=== PATIENT | male | born 1995 | race Caucasian/White ===

== ENCOUNTER 2017-10-04 20:44 | Emergency (ER) | payer SELFPAY ==
[2017-10-04 20:53] VITALS: TEMP 97.9
[2017-10-04] MEDS ORDERED: DiphenhydrAMINE 12.5 mg/5 ml LIQ UD (5 ml) PO STA (21:31)
--- NOTE | 2017-10-04 21:31 | ED PDOC ---
Arrival/HPI - General Historian: Patient EM Caveat: Language Barrier (Burkinan speaking) - History of Present Illness Time/Duration: 24 hours Symptom Onset: Gradual Activities at Onset: Rest, Light Context: Home - General Chief Complaint: Allergic Reaction Time Seen by Provider: 10/04/17 21:15 - History of Present Illness Narrative History of Present Illness (Text): 10/04/17 21:23 Mr. Powell is a 22 year old male with a past medical history significant for asthma who presents to the [facility] ED with a chief complaint of an itchy rash all over his body that started yesterday. Patient reports that yesterday afternoon, he developed itchy red bumps on his chest that then progressed throughout his entire body over the following 24 hours. Patient endorses that he just moved into a new house and is currently sleeping on a mattress that is not his own. He denies any recent travel, use of any new products, recent camping or any history of STI's. Patient also denies any fever, chills, headache, rhinorrhea, sore throat, chest pain, SOB, cough, wheezing, abdominal pain, N/V/D/C, burning with urination, or any numbness/tingling/weakness of any extremity. (Parth Cuadra) Past Medical History - Provider Review Nursing Documentation Reviewed: Yes - Travel History Have you recently traveled outside [place] w/in the past 3 mons?: No - Past History Past History: No Previous - Infectious Disease Hx of Infectious Diseases: None - Tetanus Immunization Tetanus Immunization: Unknown - Psychiatric Hx Substance Use: No - Anesthesia Hx Anesthesia: No Family/Social History - Physician Review Nursing Documentation Reviewed: Yes Family/Social History: No Known Family HX Smoking Status: Never Smoked Hx Alcohol Use: Yes Frequency of alcohol use: Socially Hx Substance Use: No Allergies/Home Meds Allergies/Adverse Reactions: Allergies No Known Allergies Allergy (Verified 10/04/17 20:49) Home Medications: Home Meds Medication Instructions Recorded Confirmed No Known Home Med 10/04/17 10/04/17 Review of Systems - Physician Review All systems were reviewed & negative as marked: Yes - Review of Systems Constitutional: Normal. absent: Fevers, Night Sweats Eyes: Normal. absent: Vision Changes ENT: Normal. absent: Rhinorrhea Respiratory: Normal. absent: SOB, Cough Cardiovascular: Normal. absent: Chest Pain, Palpitations Gastrointestinal: Normal. absent: Abdominal Pain, Constipation, Diarrhea, Nausea, Vomiting Genitourinary Male: Normal. absent: Dysuria Musculoskeletal: Normal. absent: Back Pain, Neck Pain Skin: Rash (Red bumps throughout body), Pruritis. absent: Normal Neurological: Normal. absent: Headache Endocrine: Normal Hemo/Lymphatic: Normal Psychiatric: Normal Physical Exam Vital Signs Reviewed: Yes Temperature: Afebrile Blood Pressure: Normal Pulse: Regular Respiratory Rate: Normal Appearance: Positive for: Well-Appearing, Non-Toxic, Comfortable Pain Distress: None Mental Status: Positive for: Alert and Oriented X 3 - Systems Exam Head: Present: Atraumatic, Normocephalic Pupils: Present: PERRL Extroacular Muscles: Present: EOMI Conjunctiva: Present: Normal Mouth: Present: Moist Mucous Membranes Neck: Present: Normal Range of Motion Respiratory/Chest: Present: Clear to Auscultation, Good Air Exchange. No: Respiratory Distress, Accessory Muscle Use Cardiovascular: Present: Regular Rate and Rhythm, Normal S1, S2. No: Murmurs Abdomen: Present: Normal Bowel Sounds. No: Tenderness, Distention, Peritoneal Signs Back: Present: Normal Inspection Upper Extremity: Present: Normal Inspection. No: Cyanosis, Edema Lower Extremity: Present: Normal Inspection. No: Edema Neurological: Present: GCS=15, CN II-XII Intact, Speech Normal Skin: Present: Warm, Dry, Rashes (Maculopapular with erythematous bases over head, neck, trunk and extremities but sparing palms and soles of feet; Pruritic in nature), Normal Color Psychiatric: Present: Alert, Oriented x 3, Normal Insight, Normal Concentration Vital Signs Temp Pulse Resp BP Pulse Ox 10/04/17 23:01 78 18 109/70 98 10/04/17 20:52 97.9 F 77 17 104/67 100 Medical Decision Making ED Course and Treatment: Impression: Pt seen and evaluated with medical anthropologist. Pt, whose past medical history includes asthma, presented for diffuse pruritic rash since yesterday. Aware and agree with HPI, clinical findings, plan, and management. Plan: -- Benadryl -- Reassess and disposition (Adrián Lee) 10/04/17 21:38 Impression: 22 year old male with a past medical history significant for asthma who presents to the [facility] ED with a chief complaint of an itchy rash all over his body that started yesterday Plan: -Benadryl -Reassess and disposition Prior Visits: No previous visits (Parth Cuadra) - Medication Orders Current Medication Orders: Discontinued Medications Diphenhydramine HCl (Benadryl) 25 mg PO STAT STA Stop: 10/04/17 21:32 Last Admin: 10/04/17 21:48 Dose: 25 mg Disposition/Present on Arrival - Present on Arrival Any Indicators Present on Arrival: No History of DVT/PE: No History of Uncontrolled Diabetes: No Urinary Catheter: No History of Decub. Ulcer: No History Surgical Site Infection Following: None - Disposition Have Diagnosis and Disposition been Completed?: Yes Disposition Time: 22:26 Patient Plan: Discharge - Disposition Diagnosis: Rash of entire body Disposition: HOME/ ROUTINE Condition: STABLE Discharge Instructions (ExitCare): Bed Bugs (ED) Print Language: PERSIAN Additional Instructions: Mr. Powell, thank you for letting us take care of you today. Your provider was Dr. Lee. You were treated for bed bugs. The emergency medical care you received today was directed at your acute symptoms. If you were prescribed any medication, please fill it and take as directed. It may take several days for your symptoms to resolve. Return to the Emergency Department if your symptoms worsen, do not improve, or if you have any other problems. Please contact your doctor or call one of the physicians/clinics you have been referred to that are listed on the Patient Visit Information form that is included in your discharge packet. Bring any paperwork you were given at discharge with you along with any medications you are taking to your follow up visit. Our treatment cannot replace ongoing medical care by a primary care provider (PCP) outside of the emergency department. PLEASE FOLLOW UP WITH YOUR PRIMARY CARE DOCTOR WITHIN ONE WEEK Thank you for allowing the [facility] team to be part of your care today. Forms: [employer] ([place]an)
[2017-10-04 23:01] VITALS: BP 109/70; PULSE 78; RESP 18; O2SAT 98
== END 2017-10-04 23:02 | disposition home or self-care (01) ==
LOC: ED 20:44
DX: R21 Rash and other nonspecific skin eruption (principal)